=== PATIENT | male | born 1995 | race Two or more races ===

== ENCOUNTER 2025-02-01 09:50 | Emergency (ER) | payer SELFPAY ==
[~2025-02-01] VITALS: Ht 180.3 cm; Wt 76.0 kg
[2025-02-01 10:02] VITALS: BP 134/82; PULSE 76; RESP 18; TEMP 98.1; O2SAT 98
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
[2025-02-01] MEDS ORDERED: NAPR-746 PO (12:25)
[2025-02-01] MEDS ORDERED: AMOX875T3 PO (12:25)
== END 2025-02-01 11:56 | disposition home or self-care (01) ==
LOC: ER 09:50
DX: S02.2XXA Fracture of nasal bones, initial encounter for closed fracture (principal); S16.1XXA Strain of muscle, fascia and tendon at neck level, initial encounter; V43.52XA Car driver injured in collision with other type car in traffic accident, initial encounter; Y93.89 Activity, other specified; Y92.488 Other paved roadways as the place of occurrence of the external cause; Y99.8 Other external cause status
CPT/HCPCS: 70160; 72040